=== PATIENT | female | born 2000 | race Caucasian/White ===

== ENCOUNTER 2022-06-14 09:24 | Outpatient (CLI) | payer OTHER, SELFPAY | END 2022-06-14 09:25 | disposition home or self-care (01) | LOC: ANHAUDIO 09:26 | PROVIDERS: PCP Pediatrics; Visit Provider Hospitalist | DX: H91.93 Unspecified hearing loss, bilateral (principal) | CPT/HCPCS: 99199 ==

== ENCOUNTER 2022-06-23 12:50 | Outpatient (CLI) | payer OTHER, SELFPAY | END 2022-06-23 12:51 | disposition home or self-care (01) | LOC: ANHAUDIO 12:51 | PROVIDERS: PCP Pediatrics; Visit Provider Hospitalist | DX: H91.93 Unspecified hearing loss, bilateral (principal) | CPT/HCPCS: 92553; 92555; 92567 ==